=== PATIENT | female | born 1955 | race Caucasian/White ===

== ENCOUNTER 2017-06-16 16:10 | Emergency (ER) | payer OTHER ==
[~2017-06-16] VITALS: Ht 165.1 cm; Wt 98.9 kg
[2017-06-16] MEDS ORDERED: MAGNESIUM/ALUMINUM/SIMETHICONE 30 ML UDC PO ONE (17:00)
[2017-06-16] MEDS ORDERED: BELLADONNA ALK/PHENOBARBITAL 5 ML UDC PO ONE (17:00)
[2017-06-16] MEDS ORDERED: LIDOCAINE VISC 2% SOLN 15 ML UDC PO ONE (17:00)
[2017-06-16] MEDS ORDERED: ASPIRIN81 MG (17:25)
[2017-06-16] MEDS ORDERED: SPIRONOLACTONE25 MG PO (17:26)
[2017-06-16] MEDS ORDERED: DIOVAN80 MG PO (17:26)
[2017-06-16 17:58] VITALS: BP 128/79
== END 2017-06-16 17:50 | disposition home or self-care (01) ==
LOC: FSED 16:10
DX: R07.9 Chest pain, unspecified (principal); E78.5 Hyperlipidemia, unspecified; Z98.84 Bariatric surgery status; Z87.891 Personal history of nicotine dependence
CPT/HCPCS: 71046; 80053; 82553; 83880; 84484; 85025; 85379; 93005; 99283